=== PATIENT | male | born 1965 | race Caucasian/White ===

== ENCOUNTER 2017-08-20 01:01 | Emergency (ER) | payer MEDICARE, MEDICAID ==
[~2017-08-20] VITALS: Ht 165.1 cm; Wt 69.5 kg
[~2017-08-20 01:01] MED LIST: AMIL5TAB8 PO; CALC1TAB92 PO; DOCU250C16 PO; FURO40 PO; LACT10SO34 PO; METO10TA3 PO; OMEP20CA10 PO; RIFAX550 PO; SPIR25 PO; TRAM-459 PO; TRAM50TA4 PO; URSO300C4 PO; ZINC220T PO
[2017-08-20 01:12] LABS: GLUCOSE,POINT OF CARE 233 MG/DL (70-110)
[2017-08-20] MEDS ORDERED: LIDOCAINE HCL 1% 10 ML VIAL INJ ONE (02:00)
[2017-08-20 02:20] VITALS: BP 126/78
[2017-08-20] MEDS ORDERED: PERTUSS(ACELL),DIPH,TET VAC/PF 0.5 ML VIAL IM ONE (02:30)
[2017-08-20] MEDS ORDERED: BACITRACIN 0.9 GM PACKET OINTMENT TP ONE (02:30)
== END 2017-08-20 02:48 | disposition home or self-care (01) ==
LOC: EMS 01:02
DX: S61.211A Laceration without foreign body of left index finger without damage to nail, initial encounter (principal); I10 Essential (primary) hypertension; Z87.442 Personal history of urinary calculi; Z88.0 Allergy status to penicillin; X58.XXXA Exposure to other specified factors, initial encounter; Y93.89 Activity, other specified; Y92.89 Other specified places as the place of occurrence of the external cause; Y99.8 Other external cause status
CPT/HCPCS: 64450; 73130; 82962; 90471; 90715; 99284; J3490; 64400